=== PATIENT | female | born 1975 | race Caucasian/White ===

== ENCOUNTER 2023-10-22 06:27 | Observation (INO) ==
[2023-10-22 07:00] LABS: ABS Eosinophils 0.1 10^3/uL (0.0-0.5); ABS Lymphocytes 1.1 10^3/uL (1.0-4.8); ABS Monocytes 0.8 10^3/uL (0.0-0.9); ABS Neutrophils 4.6 10^3/uL (1.5-7.6); Eosinophil % 0.9 %; Hematocrit 34.8 % (35-45); Hemoglobin 12.3 g/dL (11.5-14.3); Lymphocyte % 16.8 %; Mean Corpuscular Hemoglobin 32.5 pg (27-33); Mean Corpuscular Hgb Conc 35.3 g/dL (31-36); Mean Corpuscular Volume 92.1 fL (80-97); Mean Platelet Volume 8.7 fL (7.5-11.2); Platelet Count 212 10^3/uL (150-450); Red Blood Count 3.78 10^6/uL (3.63-4.92); Red Cell Distribution Width 12.4 % (12-17); White Blood Count 6.6 10^3/uL (3.8-11.8)
[2023-10-22 07:18] LABS: INR 1.01 (0.83-1.13)
[2023-10-22 07:44] LABS: Albumin 3.7 g/dL (3.2-5.2); Albumin/Globulin Ratio 1.2 (1-3); Calcium 8.6 mg/dL (8.6-10.3); Creatinine, Serum 0.66 mg/dL (0.51-0.95); Globulin 3.1 g/dL (2-4); Potassium 4.2 mmol/L (3.5-5.0); Total Bilirubin 0.5 mg/dL (0.2-1.0); Total Protein 6.8 g/dL (6.4-8.9); eGFR CKD-EPI 107.5 (>60)
[2023-10-22 09:11] LABS: High Sensitivity Troponin 1 Hr 282 pg/mL (<15)
[2023-10-22] MEDS: Iohexol 350 (CONTRAST) 500 ML MDV IV ONE (13:23)
[2023-10-22 14:40] LABS: C Reactive Protein 34.02 mg/L (<8.01)
[2023-10-22 15:09] LABS: TSH Ultra Thyroid Stim Horm 7.93 mcIU/mL (0.34-5.60)
[2023-10-22 15:39] LABS: HDL Cholesterol 35.3 mg/dL
[2023-10-22 17:48] LABS: High Sensitivity Troponin 3 Hr 197 pg/mL (<15)
[2023-10-22] MEDS: Enoxaparin 40 MG/0.4 ML SYR SUBCUT SCH (19:11)
[2023-10-23 05:46] LABS: ABS Eosinophils 0.1 10^3/uL (0.0-0.5); ABS Lymphocytes 1.8 10^3/uL (1.0-4.8); ABS Monocytes 0.6 10^3/uL (0.0-0.9); ABS Neutrophils 2.8 10^3/uL (1.5-7.6); ABS Nucleated RBC 0.01 10^3/ul; Eosinophil % 1.8 %; Hematocrit 34.3 % (35-45); Hemoglobin 11.5 g/dL (11.5-14.3); Lymphocyte % 34.2 %; Mean Corpuscular Hemoglobin 31.3 pg (27-33); Mean Corpuscular Hgb Conc 33.7 g/dL (31-36); Mean Corpuscular Volume 92.9 fL (80-97); Mean Platelet Volume 8.8 fL (7.5-11.2); Nucleated Red Blood Cells % 0.1 %/100WBC (0.0-0.8); Platelet Count 236 10^3/uL (150-450); Red Blood Count 3.69 10^6/uL (3.63-4.92); Red Cell Distribution Width 12.6 % (12-17); White Blood Count 5.3 10^3/uL (3.8-11.8)
[2023-10-23 06:54] LABS: Albumin 3.3 g/dL (3.2-5.2); Albumin/Globulin Ratio 1.1 (1-3); Calcium 8.7 mg/dL (8.6-10.3); Creatinine, Serum 0.59 mg/dL (0.51-0.95); Globulin 2.9 g/dL (2-4); Potassium 4.1 mmol/L (3.5-5.0); Total Bilirubin 0.4 mg/dL (0.2-1.0); Total Protein 6.2 g/dL (6.4-8.9); eGFR CKD-EPI 110.4 (>60)
[2023-10-23] MEDS: Psyllium PAK PO PRN (10:50)
[2023-10-23] MEDS ORDERED: Sulfur Hexaflouride MICROSPHR 25 MG VIAL ONE (11:50)
[2023-10-23] MEDS: Sulfur Hexaflouride MICROSPHR 25 MG VIAL IV ONE (11:52)
[2023-10-23 13:55] LABS: High Sensitivity Troponin 1 Hr 38 pg/mL (<15)
[2023-10-24 06:36] LABS: Calcium 8.8 mg/dL (8.6-10.3); Creatinine, Serum 0.53 mg/dL (0.51-0.95); Magnesium 1.9 mg/dL (1.9-2.7); Potassium 4.4 mmol/L (3.5-5.0); eGFR CKD-EPI 113.3 (>60)
[2023-10-24 10:07] VITALS: BP 99/69
[2023-10-24 16:18] LABS: Cytomegalovirus IgG Antibody Positive (Negative); EBV, IgG Ab to Early Antigen Negative (Negative)
[2023-10-25 00:29] LABS: Anaplasma phagocytophilum Negative (Negative); B. miyamotoi PCR, B Negative (Negative); Babesia divergens/MO-1 Negative (Negative); Babesia ducani Negative (Negative); Ehrlichia chaffeensis Negative (Negative); Ehrlichia ewingii/canis Negative (Negative); Ehrlichia muris eauclairensis Negative (Negative)
[2023-10-26 13:03] LABS: IgG Immunoblot Negative (Negative); IgM Immunoblot Positive (Negative)
== END 2023-10-24 12:30 | disposition home or self-care (01) ==
LOC: ED 06:27 → EDHOLD 06:27 → MEDTELE 15:58
PROVIDERS: ADMIT Student in an Organized Health Care Education/Training Program; ATTEND Student in an Organized Health Care Education/Training Program